=== PATIENT | female | born 1950 | race Caucasian/White ===

== ENCOUNTER 2024-01-20 12:22 | Emergency (ER) | payer OTHER ==
[2024-01-20 12:33] VITALS: BP 135/73; PULSE 68; RESP 18; TEMP 97.5
[2024-01-20 13:51] LABS: INR 0.93 (0.83-1.09); PROTHROMBIN TIME (PATIENT) 10.8 SEC (9.7-13.0)
[2024-01-20] MEDS ORDERED: ACETAMINOPHEN INJECTION 100 ML IVPB ONE (13:51)
[2024-01-20] MEDS: ACETAMINOPHEN 1000 MG/100 ML BAG IVPB ONE (13:55)
[2024-01-20] MEDS: LACTATED RINGERS SOLUTION 1000 ML INFUS.BAG IV ONE (13:55)
[2024-01-20 14:40] LABS: POTASSIUM 5.3 mmol/L (3.5-5.1)
[2024-01-20 14:43] LABS: CALCIUM 10.5 mg/dL (8.5-10.1)
[2024-01-20 14:44] LABS: BLOOD UREA NITROGEN 35.4 mg/dL (7-18); MAGNESIUM 1.7 mg/dL (1.8-2.4)
[2024-01-20 14:47] LABS: CREATININE 2.2 mg/dL (0.55-1.3)
[2024-01-20 14:48] LABS: BILIRUBIN,TOTAL 0.5 mg/dL (0.2-1); TOT PROT 7.9 g/dl (6.4-8.2)
[2024-01-20 16:14] LABS: BASO % 0.3 % (0-2.0); EOS % 0.1 % (0-4.5); HEMATOCRIT 37.2 % (32.4-45.2); HEMOGLOBIN 11.9 GM/dL (10.7-15.3); LYMPH % 12.8 % (8-40); MCH 25.2 pg (25.7-33.7); MCHC 32.1 g/dl (32.0-36.0); MEAN CELL VOLUME 78.6 fl (80-96); MEAN PLT VOLUME 9.7 fl (7.5-11.1); MONO % 5.6 % (3.8-10.2); NEUT % 81.2 % (42.8-82.8); PLATELET COUNT 216 10^3/uL (134-434); RBC 4.74 M/mm3 (3.60-5.2); RDW 15.6 % (11.6-15.6); WHITE BLOOD COUNT 9.9 K/mm3 (4.0-10.0)
[2024-01-20 16:35] LABS: POTASSIUM 4.8 mmol/L (3.5-5.1)
[2024-01-20 16:38] LABS: BLOOD UREA NITROGEN 37.9 mg/dL (7-18); CALCIUM 9.9 mg/dL (8.5-10.1)
[2024-01-20 16:40] LABS: CREATININE 2.1 mg/dL (0.55-1.3)
[2024-01-20] MEDS ORDERED: MAGNESIUM SULFATE IN WATER 2 GM/50 ML IVPB IVPB ONE (17:08)
[2024-01-20] MEDS: MAGNESIUM SULFATE IN WATER 2 GM/50 ML IVPB IVPB ONE (17:17)
== END 2024-01-20 19:36 | disposition home or self-care (01) ==
LOC: JER 12:22
PROC: 3E033GC Introduction of Other Therapeutic Substance into Peripheral Vein, Percutaneous Approach (ICD-10-PCS; principal; 2024-01-20)
PROC: 3E033NZ Introduction of Analgesics, Hypnotics, Sedatives into Peripheral Vein, Percutaneous Approach (ICD-10-PCS; 2024-01-20)
DX: S09.90XA Unspecified injury of head, initial encounter (principal); R55 Syncope and collapse; R42 Dizziness and giddiness; W01.190A Fall on same level from slipping, tripping and stumbling with subsequent striking against furniture, initial encounter
CPT/HCPCS: 36415; 70450-TC; 71045-TC-FY; 72125-TC; 72128-TC; 80048; 80053; 82962; 83735; 84484; 85025; 85610; 85730; 86850; 86900; 86901; 93005; 93010; 99285-25; J0131